=== PATIENT | female | born 1975 | race Caucasian/White ===

== ENCOUNTER 2023-07-22 07:40 | Outpatient (CLI) | payer OTHER, SELFPAY ==
--- NOTE | 2023-07-22 07:45 | CRLHL7_ITS ---
For Patients: As a result of the Century Cures Act, medical imaging exams and procedure reports are released immediately into your electronic medical record. You may view this report before your referring provider. If you have questions, please contact your health care provider. BILATERAL SCREENING MAMMOGRAM WITH COMPUTER-AIDED DETECTION AND TOMOSYNTHESIS TECHNIQUE: CC and MLO views were obtained. These mammographic images have been obtained using full-field digital technique. These mammographic images were interpreted with the benefit of computer-aided detection. Breast Tomosynthesis was used in this interpretation. COMPARISON FILM: 04/13/22, 09/25/19, 06/05/18. FINDINGS: The breasts are heterogeneously dense, which may obscure small masses IMPRESSION: There is no radiographic evidence for malignancy. ASSESSMENT: BI-RADS Category 1: Negative RECOMMENDATION: Routine screening mammogram in 1 year. A lay language report of this examination will be provided to the patient. Luciano Arshad M.D. Diagnostic Radiologist [email or web address] Transcribed: 3:36 [email or web address].[email or web address] camejo/Dictated by: Luciano Arshad MD @ 07/22/2023 12:26:00 PM (Electronically Signed)
== END 2023-07-22 07:41 | disposition home or self-care (01) ==
LOC: MAMMO 07:42
PROVIDERS: PCP Emergency Medicine; Visit Provider Emergency Medicine
DX: Z12.31 Encounter for screening mammogram for malignant neoplasm of breast (principal); R92.2 Inconclusive mammogram
CPT/HCPCS: 77063; 77067

== ENCOUNTER 2023-08-09 17:27 | Outpatient (CLI) | payer OTHER, SELFPAY | END 2023-08-09 17:28 | disposition home or self-care (01) | PROVIDERS: PCP Emergency Medicine; Visit Provider Emergency Medicine | DX: Z00.00 Encounter for general adult medical examination without abnormal findings (principal); N92.0 Excessive and frequent menstruation with regular cycle; L70.9 Acne, unspecified | CPT/HCPCS: 80048; 82728; 84443 ==

== ENCOUNTER 2023-08-19 07:10 | Outpatient (CLI) | payer OTHER, SELFPAY ==
--- NOTE | 2023-08-19 07:15 | CRLHL7_ITS ---
For Patients: As a result of the Century Cures Act, medical imaging exams and procedure reports are released immediately into your electronic medical record. You may view this report before your referring provider. If you have questions, please contact your health care provider. INDICATION: EXCESSIVE AND FREQUENT MENSTRUATION COMPARISON: none TECHNIQUE: 2D washburn scale and color Doppler images were acquired of the pelvis using a transabdominal and transvaginal approach. FINDINGS: A right fundal intramural fibroid is present measuring 2.3 x 1.1 x 1.8 cm. There is a lower uterine segment fibroid measuring 1.0 x 0.7 x 1.0 cm. A mid left uterine fibroid is present measuring 1.3 x 1.0 x 1.8 cm which abuts the endometrium. Uterus measures 11.8 cm in length by 6.1 cm in AP diameter by 8.3 cm in transverse dimension. The myometrium has a heterogeneous echotexture. The endometrial lining appears thickened and heterogeneous and measures 14 mm in composite thickness. Multiple cervical nabothian cysts are present. The right ovary measures 3.9 x 1.4 x 2.3 cm in size and the left ovary measures 8.9 x 7.3 x 8.6 cm. The ovaries demonstrate normal arterial and venous blood flow on color Doppler analysis. A large simple anechoic cyst is present within the left ovary measuring 7.7 x 6.5 x 7.8 cm. A smaller adjacent cyst is also noted. There are no suspicious fluid collections within the cul-de-sac. IMPRESSION: Multiple uterine fibroids measuring up to 2.3 cm. One of the fibroids abuts the endometrium on the left. Thickened and heterogeneous endometrium measuring 14 millimeters. Large simple left ovarian cyst measuring 7.8 cm. Dictated by Luciano Arshad MD @ 08/22/2023 5:59:35 AM (Electronically Signed)
== END 2023-08-19 07:11 | disposition home or self-care (01) ==
LOC: US 07:10
PROVIDERS: PCP Emergency Medicine; Visit Provider Emergency Medicine
DX: N92.0 Excessive and frequent menstruation with regular cycle (principal); D25.9 Leiomyoma of uterus, unspecified; R93.89 Abnormal findings on diagnostic imaging of other specified body structures; N83.202 Unspecified ovarian cyst, left side
CPT/HCPCS: 76830; 76856; 93976

== ENCOUNTER 2023-09-23 07:07 | Outpatient (CLI) | payer OTHER, SELFPAY ==
--- NOTE | 2023-09-23 07:15 | CRLHL7_ITS ---
For Patients: As a result of the Century Cures Act, medical imaging exams and procedure reports are released immediately into your electronic medical record. You may view this report before your referring provider. If you have questions, please contact your health care provider. CLINICAL HISTORY: Follow-up left ovarian cyst Comparison 08/19/2023 TECHNIQUE: 2D washburn scale and color Doppler images were acquired of the pelvis using a transvaginal approach. FINDINGS: Uterine echotexture is heterogeneous. Multiple fibroids are present. Lower uterine segment fibroid is present measuring 8 x 9 x 9 millimeters, previously measuring 10 x 7 x 10 millimeters. A mid left intramural fibroid is present measuring 9 x 8 x 9 millimeters, previously measuring 13 x 10 x 18 millimeters. Right fundal intramural fibroid measures 1.8 x 0.9 x 1.5 cm, previously measuring 2.3 x 1.1 x 1.8 cm. Left fundal intramural fibroid measures 1.0 x 1.2 x 1.1 cm. The endometrial lining measures 10 mm in thickness. The right ovary measures 9.0 x 6.7 x 7.7 cm in size and the left ovary measures 9.0 x 6.7 x 7.7 cm. The ovaries demonstrate normal arterial and venous blood flow on color Doppler analysis. There are no suspicious fluid collections within the cul-de-sac. Anechoic left ovarian cyst is present measuring 8.8 x 6.7 x 7.3 cm, previously measuring 7.7 x 6.5 x 7.8 cm. IMPRESSION: Simple left ovarian cyst measuring up to 8.8 cm. Dictated by Luciano Arshad MD @ 09/23/2023 11:51:48 AM (Electronically Signed)
== END 2023-09-23 07:08 | disposition home or self-care (01) ==
LOC: US 07:07
PROVIDERS: PCP Emergency Medicine; Visit Provider Obstetrics & Gynecology
DX: N83.202 Unspecified ovarian cyst, left side (principal)
CPT/HCPCS: 76830

== ENCOUNTER 2023-10-20 10:14 | Outpatient (CLI) | payer OTHER, SELFPAY | END 2023-10-20 10:15 | disposition home or self-care (01) | LOC: NFLDREF 10-21 11:06 | PROVIDERS: PCP Emergency Medicine; Referring Provider Emergency Medicine; Visit Provider Emergency Medicine | DX: Z01.818 Encounter for other preprocedural examination (principal); D50.9 Iron deficiency anemia, unspecified | CPT/HCPCS: 80048 ==

== ENCOUNTER 2023-11-01 08:29 | Day surgery (SDC) | payer OTHER, SELFPAY ==
[2023-11-01] VITALS (17 sets, daily range): BP systolic 110–133; BP diastolic 75–96; PULSE 56–85; RESP 12–18; TEMP 36.2–37.1; O2SAT 94–100; BMI 26.5
[2023-11-01 08:56] LABS: Ur HCG Qualitative* Negative (Negative)
[2023-11-01 09:09] LABS: Hemoglobin* 10.4 gm/dL (12.0-16.0)
[2023-11-01] MEDS: LACTATED RINGERS 1000 ML 1,000 ML 100 ML IV ×4 (09:20→18:28)
[2023-11-01] MEDS: SODIUM CHLORIDE 0.9 % (FLUSH) 10 ML SYRINGE IVF (09:22)
[2023-11-01] MEDS: ACETAMINOPHEN 500 MG TABLET 1000 MG PO (10:06)
--- NOTE | 2023-11-01 10:28 | W.ANESCHARGE ---
Anesthesia Charges Start Date/Time Anesthesia Start Date: 11/01/23 Anesthesia Start Time: 11:59 Stop Date/Time Anesthesia Stop Date: 11/01/23 Anesthesia Stop Time: 16:03
[2023-11-01] MEDS: CEFAZOLIN 2 GM INJ IVP (12:26)
[2023-11-01] MEDS: BUPIVACAINE 0.25% 30 ML 16 ML INJECTION (12:41)
--- NOTE | 2023-11-01 13:25 | W.PM.NB ---
Nerve Block Nerve Block Time Seen by Provider: 12:10 Date Seen: 11/01/23 Type of block requested by surgeon for post-operative analgesia: TAP Side: bilateral Time out performed: Yes Verification of patient name: Yes Verification of date of : Yes Site marking: site marked Name of person performing procedure: Jose Alfredo Continuous monitoring Was continuous monitoring of O2 sat, B/P, property assessment monitor, recorded every 15 minutes?: Yes Procedure Checklist: sterile prep, needles and gloves Ultrasound guided. Images saved: Yes Medications given in 5ml increments after negative aspiration: Marcaine %: 0.25 mL: 30 Needle gauge: 20 and Exparel mL: 10 Patient tolerated procedure well: Yes Additional comments: Needle noted between internal oblique and transversus abdominus. Local spread visualized Block Charges Block Charge (with Pro Fee): TAP Bilateral Use of Ultrasound Machine for Block: Yes- US Guidance/pain block
--- NOTE | 2023-11-01 15:48 | W.PM.GYNPROC ---
Procedure Note Time Seen by Provider: 15:48 Date of procedure: 11/01/23 Pre-op diagnosis: Absent right ureteral efflux Procedure: Diagnostic cystoscopy Right ureteral stent placement Right ureteral stent removal Anesthesia: GETA Complications: None Surgeon: Claudia Jennings MD Strap Stitcher: Shawnee Beverly Estimated blood loss (mL): 0 Condition: stable Disposition: observation Findings: Absent right ureteral efflux Negative bladder survey Small sediment in urine, likely secondary to dehydration Procedure Description: Dr. Beverly was completing a total laparoscopic hysterectomy, bilateral salpingectomy and left oophorectomy in the setting of abnormal uterine bleeding/leiomyoma and left adnexal mass. I was present and scrubbed during the entirety of the case, acting as her assistant prosecuting attorney. At the completion of vaginal cuff closure, Dr. Beverly completed a diagnostic cystoscopy with negative bladder survey aside from absent right ureteral efflux. The patient had received methylene blue some time prior, but no blue coloration of the urine was appreciated. Given concern for possible right ureteral injury/kinking, intraoperative consultation was requested for ureteral stent placement. I acted as the primary surgeon for this component of the case. We started by emptying the bladder using the operative sheath of the cystoscope. Large volume urine/saline was drained. Cystoscope was reintroduced and bladder was distended with saline again. The right ureteral orifice was visualized and inspected for several minutes, with ongoing absence of efflux despite vermiculation. 0.35mm straight tip, flexible ureteral guidewire inserted through the operative channel of the cystoscope. This was easily introduced into the right ureteral orifice and advanced without difficulty until slight resistance was appreciated at the ureteropelvic junction. Flexible ureteral stent was guided gently over the wire and inserted to 20 cm in depth. Again, no resistance was felt throughout advancement of the stent. Guide wire was removed. Ureteral stent was secured to patient's right leg. Efflux of urine was noted through the end of the stent. Indwelling Mirza catheter was reinserted. Dr. Beverly then proceeded to laparoscopic evaluation. The entirety of the right ureter was examined from the vaginal cuff to the pelvic brim. The course of the ureter was noted to be free of the operative field, where particular attention was paid to the lateral margin of the vaginal cuff and right uterine vascular pedicles. No apparent injury or kinking of the ureter was noted. The right ureteral stent was subsequently removed. Despite her normal evaluation, recommend diligent monitoring for signs or symptoms of occult urinary tract injury such as postoperative abdominal/pelvic/flank/back pain, nausea/vomiting, fever/chills. Remainder of care was carried out by Dr. Beverly, please see her operative note for further details.
--- NOTE | 2023-11-01 15:53 | P.GYNPRC_ITS ---
Procedure Note Date of procedure: 11/01/23 Pre-op diagnosis: 1. Large simple left ovarian cyst, 2. Menorrhagia, 3. Myomatous uterus Post-op diagnosis: same Procedure: 1. Total laparoscopic hysterectomy. 2. Left salpingo oophorectomy. 3. Right salpingectomy. 4. Diagnostic cystoscopy. 5. Right ureteral stent placement and removal by Dr. Jennings. Anesthesia: GETA and other (TAP block) Complications: None. Surgeon: Shawnee Beverly MD Shot Core Drill Operator Helper: Saira Jennings Estimated blood loss (mL): 100 Pathology: specimen obtained, sent to pathology (1. Left fallopian tube and ovary, 2. Uterus and right fallopian tube ) Condition: stable Disposition: PACU Findings: Enlarged cystic left ovary containing clear straw-colored fluid, greater than 10 cm diameter. Retroverted, myomatous uterus, irregular in shape and enlarged. 223 g. Normal right ovary. Normal fallopian tubes. Normal appendix. Procedure Description: After obtaining informed consent, the patient was taken to the operating room where general anesthesia was obtained without difficulty. She was prepared and draped in the normal sterile fashion in the low dorsal lithotomy position. A Mirza catheter was inserted into the bladder and left to gravity drainage. A medium Graves open-sided speculum was introduced into the vagina. The cervix was visualized and grasped along its anterior lip with a single-tooth tenaculum. The uterus was gently sounded. Sound length was found to be 10 cm. I then placed an extra-large VCare uterine manipulator. The tenaculum and speculum were removed. The green VCare cup was digitally pressed up against the cervix and then cinched in place with the blue accessory cup. I then changed gloves and my attention was turned to the abdomen. The inferior aspect of the umbilical fold was injected with 0.25% Marcaine plain. An 11 mm vertical incision was then made within the umbilical fold using a scalpel. This incision was bluntly dissected to the level of the fascia. The fascia was grasped with two small Stefania clamps, elevated, and incised sharply with Macdonald scissors. The fascial incision was extended to 11 mm. The underlying peritoneum was entered bluntly. An 11 mm trocar and sleeve were then placed under direct visualization into the abdomen. The trocar was removed leaving the sleeve in place. CO2 gas was insufflated into the abdomen through the port to achieve pneumoperitoneum. The 10 mm laparoscope was used then to carefully inspect the abdomen and pelvis with findings noted above. Pictures were taken for documentation purposes. The patient was placed in Trendelenburg positioning. Two additional ports were placed in the right (11 mm) and left (5 mm) lower quadrants under direct visualization after first anesthetizing the skin and fascia with 0.25% Marcaine plain. Once the ports were in place, the VCare manipulator was used to elevate the uterus. The ureters were identified bilaterally along their courses in the pelvic sidewalls. The VCare cup was visualized and palpated with a blunt grasper. The left fallopian tube was elevated with a graspers. The Olympus Powerseal was used to seal and transect the left fallopian tube near the uterine cornua. The tube was then dissected from its broad ligament and ovarian attachments using the Olympus Powerseal, leaving only the fimbrial end attached to the ovary. The ovary was then elevated with a graspers, and the Olympus Powerseal was used to seal and transect the left ovarian ligament. The Olympus Powerseal device was used to seal and transect the remaining broad ligament attachments. There were some adhesions between the sigmoid colon epiploica and the left ovary which were taken down sharply with laparoscopic Metzenbaum scissors. The left infundibulopelvic ligament was then isolated, sealed with the Olympus Powerseal and transected. Excellent hemostasis was visualized. A 10 cm Endo-Catch bag was then introduced through the right lower quadrant port, an attempt was made to drop the cystic ovary and tube into the bag. Unfortunately, the ovary was found to be too big to fit into the bag. The 11 mm port was switched out to a 10-15 mm port under direct visualization, after first extending the skin incision. A 15 cm Endo-Catch bag was then placed through this port and the ovary and tube placed within the bag. The port was removed and the bag containing the ovary in two brought to the surface of the skin. The fallopian tube was removed from the bag using a graspers. The ovarian stroma was pu nctured in multiple places with a large-bore needle, and straw-colored cyst fluid removed using suction. Once the ovary was completely decompressed, the entire bag containing the decompressed ovary was removed from the abdomen. The laparoscopic port was replaced into the abdomen. The right tube was elevated with a graspers. The Olympus Powerseal was used to dissect the tube from it's ovarian and broad ligament and cornual attachments before removing the tube through a lower port. Excellent hemostasis was obtained. The right round ligament was then sealed in a wide swath and transected with the Olympus Powerseal. Excellent hemostasis was obtained. The broad ligament was then opened using the Olympus Powerseal anteriorly and posteriorly along the cervix from the right within the confines of the VCare cup. Pressure was maintained on the uterine manipulator the whole time. The right uterine vessels were sealed in a wide swath and transected with the Olympus Powerseal, then the tissues over the VCare cup edge on the right side were thinned using the Olympus Powerseal to the midline posteriorly and anteriorly so that the fascial layer could be identified. The left round ligament was then sealed in a wide swath and transected with the Olympus Powerseal. Excellent hemostasis was obtained. The broad ligament was then opened using the Olympus Powerseal anteriorly and posteriorly along the cervix from the left within the confines of the VCare cup. Pressure was maintained on the uterine manipulator the whole time. The left uterine vessels were sealed in a wide swath and transected with the Olympus Powerseal, then the tissues over the VCare cup edge on the left side were thinned using the Olympus Powerseal to the midline posteriorly and anteriorly so that the fascial layer could be identified. Once an adequate dissection was made circumferentially, the Olympus Powerseal was removed and the [facility] electrocautery spatula used to incise the tissue circumferentially around the cervix within the groove of the VCare cup. Once the dissection was completed circumferentially, I was able to go below and remove the uterine manipulator and the uterus. The uterus was left in the vagina to aid in maintaining pneumoperitoneum. The vaginal cuff was reapproximated in a running fashion with a V-Loc suture starting from the left side and running across to the right and then back to the midline where the suture was cut flush with the tissues. The pelvis was copiously irrigated and hemostasis visualized. Preparations were then made for cystoscopy. Methylene blue was administered intravenously along with the IV fluids. The uterus was removed from the vagina. The Mirza catheter was removed. The patient was flattened out. Cystoscopy was performed using sterile normal saline as distending medium. The bladder was carefully inspected and noted to be free of filling defects or suture material. Both ureteral orifices were easily visualized. Multiple strong jets of urine were observed to flow from the left ureteral orifice. The right ureteral orifice was observed to periodically peristalse, but definitive urine flow from the right ureteral orifice was indeterminate. The decision was made for Dr. Jennings to try to place a right ureteral stent. Please see her note for details. In summary, a right ureteral stent was placed easily without difficulty. The cystoscope was removed. Urine was noted to flow from the ureteral stent. A sterile Mirza catheter was inserted into the bladder. The cystoscope was then removed. I then changed gloves again and my attention was once again turned to the abdomen. Pneumoperitoneum was again achieved. The abdomen and pelvis were again irrigated and inspected for hemostasis. The ureteral stent was visualized and palpated along its course to the pelvic brim in the right pelvic sidewall. The stent was noted to be from all areas of dissection and vaginal cuff closure. The stent was then removed by Dr. Jennings. The right lower quadrant port was removed. The Gurvinder-Estella device was then used to reapproximate the fascia in the right lower quadrant with an interrupted suture of 0 Vicryl.. All instruments were then removed under direct visualization. Pneumoperitoneum was allowed to escape. The fascia was reapproximated at the umbilicus in a pursestring fashion with 0 Vicryl. The skin at all 3 port sites was closed in a subcuticular fashion with 4-0 Vicryl. Exofin surgical glue was then placed over the incisions. The patient tolerated the procedure well. Sponge, lap, needle, and instrument counts were reported as correct x2. The patient was taken to the recovery room awake and in stable condition. She did receive 2 g of IV Ancef preoperatively. Uterine weight was 223 g.
--- NOTE | 2023-11-01 16:09 | W.ANESCHARGE ---
Anesthesia Charges Start Date/Time Anesthesia Start Date: 11/01/23 Anesthesia Start Time: 11:59 Stop Date/Time Anesthesia Stop Date: 11/01/23 Anesthesia Stop Time: 16:03
[2023-11-01] MEDS: ACETAMINOPHEN 325 MG TABLET 1000 MG PO (19:55)
[2023-11-01] MEDS: KETOROLAC 30 MG/ML inj IVP (22:12)
[2023-11-02 02:26] VITALS: BP 105/69; PULSE 77; RESP 18; TEMP 37.4; O2SAT 98
[2023-11-02] MEDS: KETOROLAC 30 MG/ML inj IVP (04:17)
[2023-11-02] MEDS: ACETAMINOPHEN 325 MG TABLET 1000 MG PO (06:26)
[2023-11-02 07:29] LABS: Hemoglobin* 9.3 gm/dL (12.0-16.0)
[2023-11-02 07:54] LABS: Creatinine* 0.6 mg/dL (0.5-1.5); Est. Creatinine Clearance* 96.92; Estimated Glomerular Filt Rate 112 ml/min
--- NOTE | 2023-11-02 08:28 | PM.GYNDS1 ---
DS: Providers Provider Time Seen by Provider: 07:30 Date Seen: 11/02/23 Primary care physician: Aylin Huerta Attending Physician on discharge: Claudia Jennings MD WOOD SASH AND FRAME CARPENTER-Discharge Summary Hospital Course Hospital Course Narrative: Patient is a 48 year old admitted on 11/01/2023 for postoperative care following a total laparoscopic hysterectomy, bilateral salpingectomy, left oophorectomy, cystoscopy and right ureteral stent insertion then removal. Indication for surgery: Abnormal uterine bleeding, left adnexal mass. Intraoperative findings were notable for left adnexal mass, bulky and enlarged uterus secondary to fibroids, absent right ureteral efflux. Please see Dr. Beverly and myself op note for complete details. She had an uncomplicated surgery. Postoperative course has been uneventful. Vitals have been stable. She has remained afebrile. Today, on postoperative day 1, she reports the pain is well controlled. She has been utilizing Tylenol and NSAIDs only, no narcotics needed. She has been able to ambulate without difficulty, no dizziness/lightheadedness. She is tolerating regular diet without nausea and vomiting. She is passing flatus. Mirza catheter has been removed, and she is voiding without difficulty. Minimal vaginal bleeding noted. Time Spent with Patient Time attestation: Total time spent providing and/or coordinating discharge services: WO[employer] S[employer] AND FRAME CARPENTER - Exam Physical Exam: Vital signs: Temp Pulse Resp BP Pulse Ox O2 Del Method 99.3 F 77 18 105/69 98 Room Air 11/02/23 02:26 11/02/23 02:26 11/02/23 02:26 11/02/23 02:26 11/02/23 02:26 11/02/23 02:26 Narrative: General: No acute distress Psych: Alert and oriented x 3, full affect HEENT: Normocephalic, atraumatic Abdomen: Soft, non-distended. Mild palpation in lower abdomen consistent with postop state, no rebound or guarding. Three surgical incisions are well-approximated with superficial surgical glue. No erythema/drainage. WOOD SASH AND FRAME CARPENTER - DS: Data Data Completed and Pending Labs on day of discharge: Labs from last 24 hours 11/02/23 11/01/23 11/01/23 07:10 Unknown 09:02 Hgb 9.3 L 10.4 L Creatinine 0.6 Estimated Creat Clear 96.92 Estimated GFR 112 Urine HCG, Qual Negative Blood Type O Positive Antibody Screen NEGATIVE Procedures Procedures: Procedures Operation Date: 11/01/23 10:15 Actual Procedure Side Surgeon p M/S - Total Laparoscopic Hysterectomy, Bilateral Salpingectomies, LEFT Oophorectomy, Diagnostic Cystoscopy Bilateral Shawnee Beverly MD s Ureteral Stent Placement AND REMOVAL Right Saira Jennings MD Discharge Plan Discharge Disposition: Home, Self-Care Discharging Surgeon: Saira Jennings Follow-Up Appointment: Two weeks [facility] Prescriptions: New ibuprofen 600 mg Tablet 600 mg PO Q6H Qty: 30 0RF docusate sodium [Colace] 100 mg capsule 100 mg PO DAILY Qty: 30 0RF acetaminophen-codeine 300-30 mg tablet 1 tab PO Q6H PRN (Reason: pain) Qty: 20 0RF No Action spironolactone 50 mg tablet 50 mg PO DAILY ibuprofen 200 mg capsule 200 mg PO .Q6h Prn as needed PRN ferrous sulfate 325 mg (65 mg iron) tablet,delayed release (DR/EC) 325 mg PO QDAY Qty: 90 0RF peg 3350-electrolytes [Golytely] 236-22.74-6.74 -5.86 gram recon soln 240 ml PO Q15M Qty: 4000 0RF Rx Instructions: until fecal effluent is clear Activity Level: No strenuous activity Discharge Diet: Regular Additional Instructions: Discharge instructions were reviewed with the patient including signs and symptoms of infection and medications to use for pain.? Pain control: Over the counter Motrin 600 mg by mouth every six hours on a full stomach for pain as needed Over the counter Acetaminophen 1000 mg by mouth every six hours on a full stomach for pain as needed Acetaminophen-Codeine 300mg-30mg 1 tab Q6H PRN for breakthough pain *Reviewed to take no more than 4000mg acetaminophen in 24 hour period with combination of tylenol/codeine and tylenol alone* Please call with: - Increasing or severe abdominal pain - Fevers/chills - Inability to tolerate solid/liquids by mouth, recurrent nausea/vomiting - Incision redness/drainage - Signs or symptoms of a blood clot - calf pain, redness, swelling, chest pain or shortness of breath ? No lifting greater than 20 pounds for 6 weeks. Nothing per vagina for 6 weeks. Off work or school for 6 weeks. ? Follow up with your surgeon in 2 weeks for incision check and 6 weeks for a postoperative visit or sooner as needed. Forms: Work/School Release Follow-up: Aylin Huerta MD [Primary Care Provider] - Discharge Orders: Discharge Order (Routine); Ordered 11/02/23 Ordered By: Saira Jennings
[2023-11-02] MEDS: IBUPROFEN 600 MG TABLET PO (08:43)
== END 2023-11-02 11:26 | disposition home or self-care (01) ==
LOC: OR 08:31 → OB 08:34
PROVIDERS: Obstetrics & Gynecology; PCP Emergency Medicine; Visit Provider Obstetrics & Gynecology
PROC: 0UT94ZZ Resection of Uterus, Percutaneous Endoscopic Approach (ICD-10-PCS; CPT 58571; principal; 2023-11-01 10:00)
PROC: (CPT 58571; 2023-11-01 10:00)
DX: N83.292 Other ovarian cyst, left side (principal); N92.0 Excessive and frequent menstruation with regular cycle; D25.9 Leiomyoma of uterus, unspecified; N13.70 Vesicoureteral-reflux, unspecified; G89.18 Other acute postprocedural pain
CPT/HCPCS: 58571; 52332; 00840; 36415; 64488; 76942; 81025; 82565; 85018; 86850; 86900; 86901; 88307; A9270; C1769; C9290; J0665; J0690; J1100; J1170; J1630; J1885; J2250; J2405; J2704; J3010; J3490; J7120

== ENCOUNTER 2024-11-19 13:38 | Outpatient (CLI) | payer OTHER, SELFPAY ==
--- NOTE | 2024-11-19 14:00 | CRLHL7_ITS ---
For Patients: As a result of the Century Cures Act, medical imaging exams and procedure reports are released immediately into your electronic medical record. You may view this report before your referring provider. If you have questions, please contact your health care provider. BILATERAL SCREENING MAMMOGRAM WITH COMPUTER-AIDED DETECTION AND TOMOSYNTHESIS TECHNIQUE: CC and MLO views were obtained. These mammographic images have been obtained using full-field digital technique. These mammographic images were interpreted with the benefit of computer-aided detection. Breast Tomosynthesis was used in this interpretation. COMPARISON FILM: 07/22/23, 04/13/22, 09/25/19. FINDINGS: The breasts are heterogeneously dense, which may obscure small masses. IMPRESSION: There is no radiographic evidence for malignancy. ASSESSMENT: BI-RADS Category 1: Negative RECOMMENDATION: Routine screening mammogram in 1 year. A lay language report of this examination will be provided to the patient. Win Barnes M.D. Diagnostic/Nuclear Medicine Radiologist [email or web address] SP/Dictated by: Win Barnes MD @ 11/21/2024 12:14:00 PM (Electronically Signed)
== END 2024-11-19 13:39 | disposition home or self-care (01) ==
LOC: MAMMO 13:39
PROVIDERS: PCP Emergency Medicine; Visit Provider Emergency Medicine
DX: Z12.31 Encounter for screening mammogram for malignant neoplasm of breast (principal); R92.333 Mammographic heterogeneous density, bilateral breasts
CPT/HCPCS: 77063; 77067

== ENCOUNTER 2025-05-15 08:30 | Outpatient (CLI) | payer OTHER, SELFPAY | END 2025-05-15 08:31 | disposition home or self-care (01) | PROVIDERS: PCP Emergency Medicine; Visit Provider Emergency Medicine | DX: R10.32 Left lower quadrant pain (principal); I10 Essential (primary) hypertension | CPT/HCPCS: 80048; 80061; 86140; 87086 ==

== ENCOUNTER 2025-06-27 15:13 | Outpatient (CLI) | payer OTHER, SELFPAY | END 2025-06-27 15:14 | disposition home or self-care (01) | PROVIDERS: PCP Emergency Medicine; Visit Provider Family Medicine | DX: R21 Rash and other nonspecific skin eruption (principal); R53.83 Other fatigue; Z11.8 Encounter for screening for other infectious and parasitic diseases | CPT/HCPCS: 84443; 86618 ==